=== PATIENT | female | born 1965 | race American Indian/Alaskan Native ===

== ENCOUNTER 2019-03-30 05:21 | Emergency (ER) | payer SELFPAY ==
[2019-03-30 05:36] VITALS: BP 155/105
--- NOTE | 2019-03-30 06:24 | Emergency Department Report ---
ED General Adult HPI - General Chief complaint: High BP Stated complaint: HIGH BP Time Seen by Provider: 03/30/19 05:45 Source: patient Mode of arrival: Ambulatory Limitations: No Limitations - History of Present Illness Initial comments: Patient is a 53-year-old [place] female with a history of hypertension and bipolar disorder presents to the ED for evaluation of her chronic high blood pressure after she ran out of her hypertension medicine atenolol-chlorthalidone that she has been taking for the last 3 years. Patient - Related Data Previous Rx's Medication Instructions Recorded Last Taken Type Atenolol/Chlorthalidone [Tenoretic 1 tab PO QDAY #30 tab 03/30/19 Unknown Rx 50-25] Allergies Allergy/AdvReac Type Severity Reaction Status Date / Time No Known Allergies Allergy Unverified 03/30/19 05:36 ED Review of Systems ROS: Stated complaint: HIGH BP Other details as noted in HPI ED Past Medical Hx - Past Medical History Previous Medical History?: Yes Hx Hypertension: Yes Additional medical history: Anemia - Surgical History Past Surgical History?: Yes Additional Surgical History: - Social History Smoking Status: Never Smoker Substance Use Type: None - Medications Home Medications: Home Medications Medication Instructions Recorded Confirmed Last Taken Type Atenolol/Chlorthalidone [Tenoretic 1 tab PO QDAY #30 tab 03/30/19 Unknown Rx 50-25] ED Physical Exam - General Limitations: No Limitations ED Course Vital Signs 03/30/19 05:32 Temperature 98.9 F Pulse Rate 74 Respiratory 18 Rate Blood Pressure 155/105 O2 Sat by Pulse 97 Oximetry Critical care attestation.: If time is entered above; I have spent that time in minutes in the direct care of this critically ill patient, excluding procedure time. ED Disposition Clinical Impression: Medication refill Hypertension Qualifiers: Hypertension type: unspecified Qualified Code(s): I10 - Essential (primary) hypertension Disposition: DC-01 TO HOME OR SELFCARE Is pt being admited?: No Does the pt Need Aspirin: No Condition: Stable Instructions: Hypertension (ED) Additional Instructions: Take medications as advised, follow up with your primary care physician in 2-3 days for reevaluation. Return to the ED immediately if symptoms get worse. Prescriptions: Atenolol/Chlorthalidone [Tenoretic 50-25] 1 tab PO QDAY #30 tab Referrals: [facility] [Outside] - 3-5 Days [facility] [Outside] - 3-5 Days Time of Disposition: 06:21 Print Language: ITALIAN
== END 2019-03-30 07:00 | disposition home or self-care (01) ==
LOC: ED 05:21
DX: I10 Essential (primary) hypertension (principal); D64.9 Anemia, unspecified; Z76.0 Encounter for issue of repeat prescription; Z79.899 Other long term (current) drug therapy
CPT/HCPCS: 99282